=== PATIENT | male | born 1940 | race Caucasian/White ===

== ENCOUNTER 2021-01-09 10:58 | Emergency (ER) | payer OTHER ==
[2021-01-09 11:31] LABS: Urine Blood Trace-intact (Negative); Urine Glucose Negative (Negative); Urine Protein Negative (Negative)
[2021-01-09 12:21] LABS: Urine Bacteria 20-50 /HPF (NONE SEEN); Urine RBC <5 /HPF (NONE SEEN)
--- NOTE | 2021-01-09 12:46 | ER ---
Nurse's Notes [facility] Name: Dustin Simpson Age: 80 yrs Sex: Male : 1940 Arrival Date: 01/09/2021 Time: 10:59 Bed 27 Private MD: Diagnosis: UTI/ Urinary tract infection, site not specified Presentation: 01/09 11:05 Chief complaint: Patient states: burning with urination that began 1 week ago. Denies aa5 fever, denies decreased urinary output, denies pain. 11:05 Coronavirus screen: At this time, the client does not indicate any symptoms associated aa5 with coronavirus-19. Ebola Screen: Patient negative for fever greater than or equal to 101.5 degrees Fahrenheit, and additional compatible Ebola Virus Disease symptoms. Initial Sepsis Screen: Does the patient meet any 2 criteria? No. Patient's initial sepsis screen is negative. Does the patient have a suspected source of infection? No. Patient's initial sepsis screen is negative. Risk Assessment: Do you want to hurt yourself or someone else? Patient reports no desire to harm self or others. Onset of symptoms was December 2020. 11:05 Method Of Arrival: Ambulatory aa5 11:05 Acuity: LUZMA 4 aa5 Historical: - Allergies: 11:14 No Known Allergies; aa5 - PMHx: 11:14 Hypertension; Hypercholesterolemia; Arthritis; aa5 - Immunization history:: Client reports receiving the 2nd dose of the Covid vaccine. - Social history:: Smoking status: Patient denies any tobacco usage or history of. Screenin:10 Abuse screen: Denies threats or abuse. Nutritional screening: No deficits noted. rb3 Tuberculosis screening: No symptoms or risk factors identified. Fall Risk None identified. Assessment: 11:10 General: Appears in no apparent distress. comfortable, Behavior is calm, cooperative, rb3 Denies fever. Pain: Denies pain. Neuro: Level of Consciousness is awake, alert, obeys commands, Oriented to person, place, time, situation. Cardiovascular: Patient's skin is warm and dry. Respiratory: Airway is patent Respiratory effort is even, unlabored, Respiratory pattern is regular, symmetrical. GI: No signs and/or symptoms were reported involving the gastrointestinal system. : Reports pain with urination, Described as a stinging sensation. 12:04 Reassessment: Patient appears in no apparent distress at this time. No changes from rb3 previously documented assessment. 13:00 Reassessment: Patient appears in no apparent distress at this time. Patient and/or rb3 family updated on plan of care and expected duration. Pain level reassessed. Patient is alert, oriented x 3, equal unlabored respirations, skin warm/dry/pink. Vital Signs: 11:05 BP 143 / 81; Pulse 84; Resp 18 S; Temp 98.5(O); Pulse Ox 99% on R/A; Weight 93.89 kg aa5 (R); Height 5 ft. 5 in. (165.10 cm) (R); Pain 0/10; 12:00 BP 120 / 72; Pulse 66; Resp 17; Pulse Ox 96% ; rb3 13:00 BP 140 / 81; Pulse 78; Resp 17; Pulse Ox 96% ; rb3 11:05 Body Mass Index 34.45 (93.89 kg, 165.10 cm) aa5 ED Course: 10:59 Patient arrived in ED. as 11:03 Christiano Hunter NP is PHCP. pm1 11:03 Asad Lu MD is Attending Physician. pm1 11:05 Nola Mcdowell, RN is Primary Nurse. rb3 11:05 Arm band placed on Patient placed in an exam room, on a stretcher. aa5 11:10 Patient has correct armband on for positive identification. Bed in low position. Call rb3 light in reach. Side rails up X 1. Pulse ox on. NIBP on. 11:14 Triage completed. aa5 13:31 No provider procedures requiring assistance completed. Patient did not have IV access aa5 during this emergency room visit. Administered Medications: 13:11 Drug: Rocephin (cefTRIAXone) 1 grams Route: IM; Site: right gluteus; rb3 13:31 Follow up: Response: No adverse reaction aa5 Outcome: 12:45 Discharge ordered by . pm1 13:30 Discharged to home ambulatory. aa5 13:30 Condition: stable 13:30 Discharge instructions given to patient, Instructed on discharge instructions, follow up and referral plans. medication usage, Demonstrated understanding of instructions, follow-up care, medications, Prescriptions given X 1. 13:31 Patient left the ED. aa5 Addendum: 01/12/2021 10:18 Addendum: Culture Results: Positive urine culture. Bacteria is resistant to, has s s intermediate sensitivity, or is not tested against prescribed antibiotics. Report given to LAVERNE for further evaluation and then to middleware developer for follow up with patient. Phone call Attempt #1 Called both numbers on file. Unable to leave VM on either phone number. Signatures: Phoebe España Audri, RN RN aa5 Tea Ambriz RN RN ss Christiano Hunter, [employer] DEPUTY HEAD pm1 Nola Mcdowell, RN RN rb3
--- NOTE | 2021-01-09 12:46 | EDPHYS ---
Physician Documentation [facility] Name: Dustin Simpson Age: 80 yrs Sex: Male : 1940 Arrival Date: 01/09/2021 Time: 10:59 Bed 27 Private MD: ED Physician Asad Lu HPI: 01/09 11:31 This 80 yrs old Male presents to ER via Ambulatory with complaints of Pain pm1 With Urination. 11:31 The patient presents with urinary symptoms, Burning with urination. Onset: The pm1 symptoms/episode began/occurred 1 week(s) ago. Modifying factors: The symptoms are alleviated by nothing, the symptoms are aggravated by nothing. Associated signs and symptoms: The patient has no apparent associated signs or symptoms, Pertinent negatives: abdominal pain, fever, Flank pain. Severity of symptoms: in the emergency department the symptoms have improved, mildly. The patient has not experienced similar symptoms in the past. The patient has been recently seen by a physician: the patient's primary care provider, Dr. Romo for apparently unrelated complaints, But forgot to mention burning with urination to his PCP. Historical: - Allergies: 11:14 No Known Allergies; aa5 - PMHx: 11:14 Hypertension; Hypercholesterolemia; Arthritis; aa5 - Immunization history:: Client reports receiving the 2nd dose of the Covid vaccine. - Social history:: Smoking status: Patient denies any tobacco usage or history of. ROS: 11:31 Constitutional: Negative for fever, chills, and weight loss, Cardiovascular: Negative pm1 for chest pain, palpitations, and edema, Respiratory: Negative for shortness of breath, cough, wheezing, and pleuritic chest pain, Abdomen/GI: Negative for abdominal pain, nausea, vomiting, diarrhea, and constipation, Back: Negative for injury and pain. 11:31 MS/Extremity: Negative for injury and deformity, Skin: Negative for injury, rash, and discoloration. 11:31 : Positive for burning with urination, Negative for flank pain. 11:31 All other systems are negative. Exam: 11:31 Constitutional: This is a well developed, well nourished patient who is awake, alert, pm1 and in no acute distress. Head/Face: Normocephalic, atraumatic. 11:31 Skin: Warm, dry with normal turgor. Normal color with no rashes, no lesions, and no evidence of cellulitis. MS/ Extremity: Pulses equal, no cyanosis. Neurovascular intact. Full, normal range of motion. 11:31 Cardiovascular: Exam negative for acute changes, Rate: normal, Rhythm: regular, Pulses: no pulse deficits are appreciated. 11:31 Respiratory: Exam negative for acute changes, respiratory distress, shortness of breath. 11:31 Abdomen/GI: Exam negative for acute changes, Inspection: abdomen appears normal, Palpation: abdomen is soft and non-tender, in all quadrants. 11:31 Back: Exam negative for acute changes, pain, is absent, CVA tenderness, is absent, vertebral tenderness, is not appreciated. 11:31 Neuro: Exam negative for acute changes, Orientation: is normal, Mentation: is normal, Motor: is normal, Sensation: is normal, no obvious gross deficits. Vital Signs: 11:05 BP 143 / 81; Pulse 84; Resp 18 S; Temp 98.5(O); Pulse Ox 99% on R/A; Weight 93.89 kg aa5 (R); Height 5 ft. 5 in. (165.10 cm) (R); Pain 0/10; 12:00 BP 120 / 72; Pulse 66; Resp 17; Pulse Ox 96% ; rb3 13:00 BP 140 / 81; Pulse 78; Resp 17; Pulse Ox 96% ; rb3 11:05 Body Mass Index 34.45 (93.89 kg, 165.10 cm) aa5 MDM: 11:06 Patient medically screened. pm1 12:45 Data reviewed: vital signs. Data interpreted: Pulse oximetry: on room air is 96 %. pm1 Interpretation: normal. Counseling: I had a detailed discussion with the patient and/or guardian regarding: the historical points, exam findings, and any diagnostic results supporting the discharge/admit diagnosis, lab results, the need for outpatient follow up, a family practitioner, to return to the emergency department if symptoms worsen or persist or if there are any questions or concerns that arise at home. 01/09 11:15 Order name: Urine Microscopic Only; Complete Time: 12:40 pm1 01/09 11:31 Order name: Urine Dipstick-Ancillary; Complete Time: 12:11 EDMS 01/09 11:15 Order name: Urine Dipstick-Ancillary (obtain specimen); Complete Time: 11:33 pm1 01/09 12:23 Order name: Urine Culture EDMS Administered Medications: 13:11 Drug: Rocephin (cefTRIAXone) 1 grams Route: IM; Site: right gluteus; rb3 13:31 Follow up: Response: No adverse reaction aa5 Disposition: 15:22 Co-signature as Attending Physician, Asad Lu MD I agree with the assessment and kdr plan of care. Disposition Summary: 01/09/21 12:45 Discharge Ordered Location: Home pm1 Problem: new pm1 Symptoms: have improved pm1 Condition: Stable pm1 Diagnosis - UTI/ Urinary tract infection, site not specified pm1 Followup: pm1 - With: Emergency Department - When: As needed - Reason: Worsening of condition Followup: pm1 - With: Private Physician - When: 2 - 3 days - Reason: Recheck today's complaints, Continuance of care, Re-evaluation by your physician Discharge Instructions: - Discharge Summary Sheet pm1 - Urinary Tract Infection, Adult pm1 Forms: - Medication Reconciliation Form pm1 - Thank You Letter pm1 - Antibiotic Education pm1 - Prescription Opioid Use pm1 Prescriptions: - Bactrim DS 800-160 mg Oral Tablet - take 1 tablet by ORAL route every 12 hours for 10 days; 20 tablet; Refills: 0, pm1 Product Selection Permitted Signatures: Dispatcher [employer] EDMS Asad Lu MD MD kdr Calderon, Audri RN RN aa5 Christiano Hunter NP ACCOUNTS PAYABLE TECHNICIAN pm1 Nola Mcdowell, RN RN rb3
[2021-01-09] MEDS ORDERED: CEFTRIAXONE 1000 MG/VIAL ONE (13:28)
[2021-01-09] MEDS ORDERED: WATER FOR INJ,STERILE 10 ML ONE (13:29)
[2021-01-09 13:39] VITALS: TEMP 98.5
[2021-01-09 13:40] VITALS: O2SAT 96
[2021-01-09 13:41] VITALS: BP 140/81
== END 2021-01-09 13:31 | disposition home or self-care (01) ==
LOC: ER 10:58
DX: N39.0 Urinary tract infection, site not specified (principal); I10 Essential (primary) hypertension
CPT/HCPCS: 81003; 81015; 87077; 87086; 87088; 87186; 96372; 99283